=== PATIENT | male | born 1960 | race Caucasian/White ===

== ENCOUNTER 2017-03-29 12:56 | Emergency (ER) | payer OTHER ==
[~2017-03-29 12:56] MED LIST: ALBU8.5H2 IH; AMLO10TA3 PO; COLC0.6C3 PO; CYCL10TA9 PO; INSU100I SUBQ; INSU100I13 SUBQ; LISI-567 PO; METO50TA3 PO; PANT40TA3 PO
[2017-03-29 13:11] VITALS: BP 168/82; PULSE 92; RESP 16; O2SAT 97
--- NOTE | 2017-03-29 13:52 | ED.REPORT ---
HPI-Headache Date of Service Mar 29, 2017 ED Provider: Ronald Jorge PA-C Krish is a 56-year-old male with a history of diabetes, hypertension, TIA presenting with chief complaint of a headache. Patient reports he woke up this morning with a mild, one over 10 headache as sensation in his left eye was puffy. 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 He was speaking to a coworker, when he "asked her if my left eye looked puffy." The coworker mentioned it to her extermination supervisor who became concerned that this was a symptom of a stroke, and advised the patient to present to the emergency department. Patient states that this headache is similar to his seasonal allergy headache, that he has been experiencing rhinorrhea, sneezing. He reports he mowed his lawn yesterday which often aggravates his symptoms. He is not concerned that he is having stroke. He denies numbness or weakness in his limbs, vision changes, difficulty speaking, fever. Nursing Notes Stated Complaint: GENERAL Chief Complaint: General Complaint Nursing Notes Reviewed: Yes Allergies: Coded Allergies: No Known Allergies (Verified Allergy, Unknown, 03/29/17) Scheduled Amlodipine (Amlodipine) 10 Mg Tablet 10 MG PO DAILY Colchicine (Colchicine) 0.6 Mg Capsule 0.6 MG PO TID Insulin Glargine (Lantus U100 Solostar Insulin Pen) 100 Unit/1 Ml Insuln.pen 73 UNIT SUBQ QPM-INSULIN Lisinopril (Lisinopril) 20 Mg Tablet 20 MG PO DAILY Metoprolol Tartrate (Metoprolol Tartrate) 50 Mg Tablet 50 MG PO BID Pantoprazole DR (Pantoprazole DR) 40 Mg Tablet.dr 40 MG PO DAILY Scheduled PRN Albuterol HFA (Proair HFA) 8.5 Gm Hfa.aer.ad 2 PUFFS IH Q4 PRN PRN For Wheezing Cyclobenzaprine (Cyclobenzaprine) 10 Mg Tablet 10 MG PO HS PRN PRN Spasm Insulin Aspart (NovoLOG U-100 Pen) 100 Unit/Ml Insuln.pen 76 U SUBQ TIDAC PRN PRN BLOOD SUGAR General Time Seen by MD: 13:38 Chief Complaint Headache Sudden in Onset?: No Past Medical History Past Medical History TIA Reports: Diabetes mellitus, Hyperlipidemia, Hypertension Past Surgical History Reports: Cataract surgery Family History Reviewed, not relevant Smoking History Never Smoker Social History Alcohol Use: Denies alcohol use Drug Use: Denies drug use Other Social History: Local resident Ambulatory Status Independent Review of Systems Negative unless stated otherwise in history of present illness Physical Exam General: Well appearing, well developed, well nourished, no acute distress. Head: Atraumatic, normocephalic. No mastoid tenderness. Eyes: No scleral icterus or injection. No discharge. PERRL. Vision grossly intact. Ears: Pinna and tragus nontender with manipulation. External auditory canal patent, atraumatic and without discharge. Tympanic membrane mullen, shiny and translucent without fluid, bulging, retraction or perforation. Hearing grossly intact. Nose: Symmetrical, nares patent without discharge. No frontal or maxillary sinus tenderness. Mouth/pharynx: normal dentition, mucus membranes moist. Tonsils 2+ and symmetrical, uvula midline. Pharynx noninjected, no cobblestoning or discharge. Voice clear. Neck: No tenderness or lymphadenopathy. Trachea midline. Respiratory: Regular rate and rhythm. Breath sounds present, clear to auscultation and equal bilaterally. No respiratory distress. No increased work of breathing, speaks in complete sentences. Cardiovascular: Regular rate and rhythm, 2/6 systolic murmur that the patient is aware of. No pedal edema. Gastrointestinal: Abdomen flat and non-tender without guarding or rebound. Bowel sounds normoactive. Skin: Warm and dry. Neurological: Normal gait. Normal finger-nose, heel-martinez, right hand. Negative pronator drift Cranial nerves: Vision grossly intact, PERRL, EOMI. Facial motion symmetrical, sensation to light touch over forehead, maxilla and mandible present and equal B /L. Voice clear and fluent, no drooling/pooling of saliva, uvula rises midline. Psychological: Alert and oriented. Speech appropriate, linear and logical. Behavior appropriate. Initial Vital Signs Vital Signs (First) Date Time Temp Pulse Resp B/P Pulse Ox O2 Delivery O2 Flow Rate FiO2 03/29/17 13:11 36.8 92 16 168/82 97 Room Air Elevated blood pressure Re-Eval/Medical Decision Med Decision/Clinical Course 56-year-old male presents emergency Department the chief complaint of a headache , referred by his extermination supervisor here at the Hospital out of concern for stroke. Patient has no concern for stroke and believes his headache is related to his allergies. Complains of puffiness in his left eye, one over 10 headache since this morning, rhinorrhea. Denies other symptoms. Physical examination is reassuring with a normal neurological examination. At this time I am reassured against dangerous causes of headaches such as CVA, intracranial bleeding, mass. Patient feels well and wishes to be discharged. I believe he is stable and safe going home. Advised regarding primary care follow-up, provided emergency return precautions. Patient verbalized understanding of, and consent to, the plan. Discharge & Departure Impression: Primary Impression: Headache Headache type: unspecified Headache chronicity pattern: unspecified pattern Intractability: not intractable Qualified Code: R51 - Headache Additional Impression: Elevated blood pressure reading Disposition: Home Discharge Condition All VS Reviewed: Yes Condition: Stable Patient Instructions: Acute Headache (ED) Additional Instructions: Evaluation for a headache in the emergency department includes interview and physical examination both of which are reassuring that your headache is unlikely to be caused by an immediately dangerous condition such as a stroke. I believe you are stable and safe to be discharged. Follow-up with your primary care provider as planned on Monday. Return to the emergency Department for any new or worsening symptoms including changes in the type or severity of your headache, neurological symptoms such as difficulty speaking, vision changes or weakness in a limb Referrals: Crystal Gutierrez DO (PCP) (Family) EDSupervising Provider for APC: Dougie Brito MD copies to: Crystal Gutierrez Seth PA-C Mar 29, 2017 13:52
== END 2017-03-29 14:09 | disposition home or self-care (01) ==
LOC: SED 12:56
DX: R51 Headache (principal); I10 Essential (primary) hypertension; E11.9 Type 2 diabetes mellitus without complications; E78.5 Hyperlipidemia, unspecified; Z86.73 Personal history of transient ischemic attack (TIA), and cerebral infarction without residual deficits; Z79.4 Long term (current) use of insulin